=== PATIENT | male | born 1930 | race African-American/Black ===

== ENCOUNTER 2016-07-08 16:28 | Emergency (ER) | payer OTHER, MEDICAID ==
[~2016-07-08] VITALS: Ht 185.4 cm; Wt 90.0 kg
[~2016-07-08 16:28] MED LIST: AMLO2.5T45 PO; ASPI-1035 PO; ATOR10TA69 PO; LISI30TA36 PO; METO50TA5 PO; PANT40TA4 PO; TAMS0.4C31 PO; TRAV2.5D EACHEYE
[2016-07-08 17:04] LABS: BASOPHILS % 0.5 % (0.0-2.0); DIFFERENTIAL COMMENT 1; EOSINOPHILS % 2.1 % (0.0-5.0); HEMATOCRIT. 33.8 % (42.0-52.0); HEMOGLOBIN. 10.6 g/dL (14.0-18.0); LYMPHOCYTES % 37.5 % (20.0-50.0); MEAN CORPUSCULAR HEMOGLOBIN 21.3 pg (28.0-32.0); MEAN CORPUSCULAR HGB CONC 31.3 g/dL (31.0-37.0); MEAN PLATELET VOLUME 7.3 fl (7.4-10.4); NEUTROPHILS % 52.9 % (40.0-76.0); PLATELET 221 x1000/uL (130-400); RED BLOOD CELL COUNT 4.97 mill/uL (4.7-6.1); RED CELL DISTRIBUTION WIDTH 15.9 % (11.6-14.6); WHITE BLOOD COUNT 5.2 x1000/uL (4.5-11.0)
[2016-07-08 17:05] LABS: ADD RBC MORPHOLOGY YES
[2016-07-08 17:10] LABS: INR 1.1
[2016-07-08 17:18] LABS: ANION GAP 11; CALCIUM 8.6 mg/dL (8.5-10.1); CARBON DIOXIDE 30 mEq/L (21-32); CHLORIDE 103 mEq/L (98-107); INDEX HEMOLYSI 1 (1-3); INDEX ICTERIC 1 (1-4); INDEX LIPEMIC 1 (1-3); NT PRO B-TYPE NATRIURETIC PEP 397 pg/mL (5-125); TROPONIN I < 0.02 ng/mL (0.00-0.04); UREA NITROGEN BLOOD 12 mg/dL (7-21); eGFR > 60 mL/min (>60)
[2016-07-08 17:28] LABS: PLATELET ESTIMATE NORMAL
[2016-07-08 17:30] LABS: GIANT PLATELETS FEW; HYPOCHROMASIA 2+; OVALOCYTES 1+
[2016-07-08 19:08] LABS: *AMPHETAMINES SCREEN URINE NEGATIVE (NEGATIVE); *BARBITURATES SCREEN URINE NEGATIVE (NEGATIVE); *BENZODIAZEPINES SCREEN URINE NEGATIVE (NEGATIVE); *COCAINE SCREEN URINE NEGATIVE (NEGATIVE); CANNABINOID URINE SCREEN NEGATIVE (NEGATIVE); ECSTASY MDMA SCREEN URINE NEGATIVE (NEGATIVE); METHADONE URINE SCREEN NEGATIVE (NEGATIVE); OPIATES URINE SCREEN NEGATIVE (NEGATIVE); PHENCYCLIDINE URINE SCREEN NEGATIVE (NEGATIVE)
[2016-07-08 20:57] VITALS: BP 131/84
== END 2016-07-08 21:05 | disposition home or self-care (01) ==
LOC: ER 16:28
DX: R07.89 Other chest pain (principal); I10 Essential (primary) hypertension; I51.7 Cardiomegaly; E78.00 Pure hypercholesterolemia, unspecified; Z79.82 Long term (current) use of aspirin
CPT/HCPCS: 36415; 71010; 80048; 80305; 83880; 84484; 85025; 85610; 93005; 99285

== ENCOUNTER 2017-08-02 02:33 | Observation (INO) | payer OTHER, MEDICAID ==
[~2017-08-02] VITALS: Ht 180.3 cm; Wt 89.8 kg
[~2017-08-02 02:33] MED LIST changes: -ASPI-1035 PO; +ASPI-1159 PO; +BRIMONIDINE 0.2% EACHEYE; +LATA2.5D2 EACHEYE; +METO-539 PO; -METO50TA5 PO; +POTA8TAB8 PO; +TIMO15DR12 EACHEYE
[2017-08-02] MEDS ORDERED: ASPIRIN 81MG TABLET PO ONE (03:30)
[2017-08-02 03:47] LABS: BASOPHILS % 0.8 % (0.0-2.0); EOSINOPHILS % 3.1 % (0.0-5.0); HEMATOCRIT. 33.9 % (42.0-52.0); HEMOGLOBIN. 10.6 g/dL (14.0-18.0); LYMPHOCYTES % 38.3 % (20.0-50.0); MEAN CORPUSCULAR HEMOGLOBIN 20.8 pg (28.0-32.0); MEAN CORPUSCULAR VOLUME 66.6 fL (80.0-94.0); MEAN PLATELET VOLUME 7.5 fl (7.4-10.4); MONOCYTES % 8.8 % (2.0-8.0); PLATELET 212 x1000/uL (130-400); RED BLOOD CELL COUNT 5.09 mill/uL (4.7-6.1)
[2017-08-02 04:00] LABS: INR 1.1
[2017-08-02 04:01] LABS: CHLORIDE 101 mEq/L (98-107)
[2017-08-02 15:17] VITALS: BP 169/73
[2017-08-02 16:00] VITALS: BP 149/73
[2017-08-02] MEDS ORDERED: IPRATROPIUM/ALBUTEROL 0.5-3(2.5)MG/3ML NEB INH PRN (16:15)
[2017-08-02] MEDS ORDERED: ACETAMINOPHEN 325MG TABLET PO PRN (16:15)
[2017-08-02] MEDS ORDERED: HYDROCODONE/ACETAMINOPHEN 5/325MG TABLET PO PRN (16:15)
[2017-08-02] MEDS ORDERED: ONDANSETRON HCL 4MG/2ML VIAL IV PRN (16:15)
[2017-08-02] MEDS ORDERED: CLONIDINE 0.2MG TABLET PO PRN ×3 (16:30→16:45)
[2017-08-02] MEDS ORDERED: POTASSIUM CHLORIDE 20MEQ TABLET SR PO NR (16:30)
[2017-08-02] MEDS ORDERED: CLONIDINE 0.1MG TABLET PO PRN (16:45)
[2017-08-02 16:52] LABS: HEMATOCRIT 35.5 % (42.0-52.0); HEMOGLOBIN 11.3 g/dL (14.0-18.0); MEAN CORPUSCULAR HEMOGLOBIN 21.2 pg (28.0-32.0); MEAN CORPUSCULAR VOLUME 66.6 fL (80.0-94.0); PLATELET 233 x1000/uL (130-400); RED BLOOD CELL COUNT 5.33 mill/uL (4.7-6.1); RED CELL DISTRIBUTION WIDTH 16.3 % (11.6-14.6)
[2017-08-02 16:53] LABS: CHLORIDE 100 mEq/L (98-107)
[2017-08-02] MEDS: PANTOPRAZOLE 40MG DR TABLET PO SCH (16:58)
[2017-08-02] MEDS: LISINOPRIL 20MG TABLET PO SCH (16:58)
[2017-08-02] MEDS: ENOXAPARIN 40MG/0.4ML SYR SUBCUT SCH (16:58)
[2017-08-02 17:04] LABS: CREATINE KINASE 87 IU/L (39-308)
[2017-08-02 17:06] LABS: CREATINE KINASE MB FRACTION 0.8 ng/mL (0.5-3.6)
[2017-08-02] MEDS ORDERED: MECLIZINE 12.5MG TABLET PO PRN (18:30)
[2017-08-02 20:00] VITALS: BP 150/80
[2017-08-02] MEDS ORDERED: LATANOPROST 0.005% OPHTH DROPS 2.5ML EACHEYE SCH (21:00)
[2017-08-03] VITALS: BP 116/54
[2017-08-03 04:00] VITALS: BP 149/64
[2017-08-03 06:09] LABS: BASOPHILS % 0.6 % (0.0-2.0); EOSINOPHILS % 2.1 % (0.0-5.0); HEMATOCRIT. 33.9 % (42.0-52.0); HEMOGLOBIN. 10.6 g/dL (14.0-18.0); LYMPHOCYTES % 36.3 % (20.0-50.0); MEAN CORPUSCULAR VOLUME 66.7 fL (80.0-94.0); MONOCYTES % 9.5 % (2.0-8.0); NEUTROPHILS % 51.5 % (40.0-76.0); PLATELET 214 x1000/uL (130-400); RED BLOOD CELL COUNT 5.08 mill/uL (4.7-6.1)
[2017-08-03 06:47] LABS: CHLORIDE 101 mEq/L (98-107)
[2017-08-03 07:03] LABS: LDL CHOLESTEROL 108 mg/dL (5-100)
[2017-08-03 07:04] LABS: HDL CHOLESTEROL 36 mg/dL (40-59)
[2017-08-03 07:08] LABS: T4 FREE 0.72 ng/dL (0.76-1.46)
[2017-08-03 08:00] VITALS: BP 134/52
[2017-08-03] MEDS: PANTOPRAZOLE 40MG DR TABLET PO SCH (08:39)
[2017-08-03] MEDS: LISINOPRIL 20MG TABLET PO SCH (08:40)
[2017-08-03] MEDS ORDERED: ASPIRIN 81MG EC TABLET PO SCH (09:00)
[2017-08-03] MEDS ORDERED: AMLODIPINE 5MG TABLET PO SCH (09:00)
[2017-08-03 12:00] VITALS: BP 154/75
[2017-08-03 13:28] LABS: PLATELET ESTIMATE NORMAL
[2017-08-03 16:00] VITALS: BP 135/76
[2017-08-03] MEDS: ENOXAPARIN 40MG/0.4ML SYR SUBCUT SCH (17:00)
[2017-08-03 17:44] VITALS: BP 130/76
[2017-08-04] MEDS ORDERED: FAMOTIDINE 20MG TABLET PO SCH (09:00)
== END 2017-08-03 19:10 | disposition home or self-care (01) ==
LOC: ER 02:33 → INTOOBSV 05:20 → 7WST 05:20 → ENRESERV 14:12
PROVIDERS: ADMIT Internal Medicine; ATTEND Internal Medicine
DX: R07.89 Other chest pain (principal); R06.02 Shortness of breath; I11.9 Hypertensive heart disease without heart failure; K21.9 Gastro-esophageal reflux disease without esophagitis; H40.9 Unspecified glaucoma; H26.9 Unspecified cataract; E87.6 Hypokalemia; D64.9 Anemia, unspecified; N40.0 Benign prostatic hyperplasia without lower urinary tract symptoms
CPT/HCPCS: 36415; 71045; 72141; 80048; 80053; 80061; 82550; 82553; 83735; 83880; 84439; 84443; 84484; 85025; 85027; 85610; 93005; 93306; 96372; 97162; 99285; G0378; J1650

== ENCOUNTER 2018-08-02 14:16 | Inpatient (IN) | payer OTHER, MEDICAID ==
[~2018-08-02] VITALS: Ht 170.2 cm; Wt 64.9 kg
[~2018-08-02 14:16] MED LIST changes: -ATOR10TA69 PO; -METO-539 PO; -TAMS0.4C31 PO; -TIMO15DR12 EACHEYE; -TRAV2.5D EACHEYE
[2018-08-02] MEDS ORDERED: ASPIRIN 81MG TABLET PO ONE (14:45)
[2018-08-02] MEDS ORDERED: DILTIAZEM HCL 125 MG in DEXT 5% WATER 100 ML IV ONE (14:45)
[2018-08-02] MEDS ORDERED: DILTIAZEM HCL 5MG/ML 5ML VIAL IV ONE (14:45)
[2018-08-02] MEDS ORDERED: SODIUM CHLORIDE 0.9% 500 ML IV ONE (15:15)
[2018-08-02 15:32] LABS: BASOPHILS % 0.6 % (0.0-2.0); HEMATOCRIT. 37.7 % (42.0-52.0); HEMOGLOBIN. 11.8 g/dL (14.0-18.0); LYMPHOCYTES % 33.5 % (20.0-50.0); MEAN CORPUSCULAR HEMOGLOBIN 21.1 pg (28.0-32.0); MEAN CORPUSCULAR VOLUME 67.1 fL (80.0-94.0); MEAN PLATELET VOLUME 7.9 fl (7.4-10.4); NEUTROPHILS % 56.9 % (40.0-76.0); PLATELET 263 x1000/uL (130-400); RED BLOOD CELL COUNT 5.62 mill/uL (4.7-6.1); RED CELL DISTRIBUTION WIDTH 16.2 % (11.6-14.6)
[2018-08-02 15:33] LABS: CHLORIDE 105 mEq/L (98-107)
[2018-08-02 15:52] LABS: PLATELET ESTIMATE NORMAL
[2018-08-02 22:37] VITALS: BP 158/83
[2018-08-02] MEDS ORDERED: ONDANSETRON HCL 4MG/2ML INJ IV PRN (22:45)
[2018-08-02] MEDS ORDERED: CLONIDINE 0.1MG TABLET PO PRN (22:45)
[2018-08-02] MEDS ORDERED: DIPHENHYDRAMINE 50MG/ML VIAL IV PRN (22:45)
[2018-08-02] MEDS ORDERED: MAGNESIUM/ALUMINUM HYDROXIDE/SIMETHICONE 30ML UDC PO PRN (22:45)
[2018-08-02] MEDS ORDERED: ACETAMINOPHEN 325MG TABLET PO PRN (22:45)
[2018-08-02] MEDS ORDERED: GUAIFENESIN 200MG/10ML SUGAR FREE UDC PO PRN (22:45)
[2018-08-03] VITALS: BP 146/81
[2018-08-03] MEDS: ENOXAPARIN 40MG/0.4ML SYR SUBCUT SCH ×2 (02:50→20:35)
[2018-08-03 04:00] VITALS: BP 138/69
[2018-08-03] MEDS: DILTIAZEM HCL 60MG TABLET PO SCH ×4 (06:00→22:00)
[2018-08-03] MEDS: SODIUM CHLORIDE 0.9% INJ 3ML FLUSH IVF SCH ×3 (06:06→20:36)
[2018-08-03 08:00] VITALS: BP 155/81
[2018-08-03] MEDS: ASPIRIN 81MG EC TABLET PO SCH (09:18)
[2018-08-03] MEDS: POTASSIUM CHLORIDE 20MEQ TABLET SR PO SCH (09:19)
[2018-08-03] MEDS: METOPROLOL TARTRATE 50MG TABLET PO SCH ×2 (09:19→21:00)
[2018-08-03] MEDS: TAMSULOSIN HCL 0.4MG SR CAPSULE PO SCH (09:20)
[2018-08-03] MEDS: BRIMONIDINE 0.2% OPHTH DROPS 5ML BOTHEYE SCH ×2 (09:20→20:35)
[2018-08-03 12:54] VITALS: BP 130/69
[2018-08-03 16:31] VITALS: BP 131/61
[2018-08-03 20:00] VITALS: BP 139/81
[2018-08-03] MEDS ORDERED: ATORVASTATIN CALCIUM 10MG TABLET PO SCH (21:00)
[2018-08-03] MEDS ORDERED: LATANOPROST 0.005% OPHTH DROPS 2.5ML BOTHEYE SCH (21:00)
[2018-08-04] VITALS: BP 132/65
[2018-08-04 04:00] VITALS: BP 158/77
[2018-08-04] MEDS: DILTIAZEM HCL 60MG TABLET PO SCH ×2 (05:40→14:30)
[2018-08-04] MEDS: SODIUM CHLORIDE 0.9% INJ 3ML FLUSH IVF SCH ×2 (05:40→14:32)
[2018-08-04 08:00] VITALS: BP 177/89
[2018-08-04 08:10] LABS: CHLORIDE 104 mEq/L (98-107)
[2018-08-04 08:25] LABS: T4 FREE 0.74 ng/dL (0.76-1.46)
[2018-08-04] MEDS: BRIMONIDINE 0.2% OPHTH DROPS 5ML BOTHEYE SCH (09:44)
[2018-08-04] MEDS: POTASSIUM CHLORIDE 20MEQ TABLET SR PO SCH (09:44)
[2018-08-04] MEDS: ASPIRIN 81MG EC TABLET PO SCH (09:45)
[2018-08-04] MEDS: TAMSULOSIN HCL 0.4MG SR CAPSULE PO SCH (09:45)
[2018-08-04] MEDS: METOPROLOL TARTRATE 50MG TABLET PO SCH (09:45)
[2018-08-04] MEDS ORDERED: LISINOPRIL 20MG TABLET PO SCH (11:00)
[2018-08-04 12:00] VITALS: BP 136/66
[2018-08-04 15:06] VITALS: BP 136/66
== END 2018-08-04 18:33 | disposition home or self-care (01) | DRG 310 ==
LOC: ER 14:16 → 6WST 17:09 → ENRESERV 21:08
PROVIDERS: ADMIT Internal Medicine; ATTEND Internal Medicine
DX: I48.0 Paroxysmal atrial fibrillation (principal); H40.9 Unspecified glaucoma; I10 Essential (primary) hypertension; K21.9 Gastro-esophageal reflux disease without esophagitis; N40.0 Benign prostatic hyperplasia without lower urinary tract symptoms; Z87.891 Personal history of nicotine dependence; Z91.14 Patient's other noncompliance with medication regimen; Z79.82 Long term (current) use of aspirin; Z79.899 Other long term (current) drug therapy
CPT/HCPCS: 36415; 71045; 80048; 83735; 83880; 84439; 84443; 84484; 93005; 93306; 93970; 96361; 96374; 99285; J1650; J3490; J7040; J7060